=== PATIENT | female | born 1955 | race Caucasian/White ===

== ENCOUNTER → 2022-01-14 12:48 | Outpatient (CLI) | payer OTHER, SELFPAY ==
--- NOTE | 2022-01-14 12:54 | DI.RAD.S_ITS ---
PROCEDURE: XR LUMBAR SPINE MIN 4V INDICATIONS: BACK PAIN TECHNIQUE: 4 views of the lumbar spine were acquired, including bilateral oblique views. COMPARISON: [facility], CR, XR LUMBAR SPINE 2 OR 3 VIEWS, 06/11/2021, 16:46. FINDINGS: Bones: 5 nonrib-bearing vertebrae are present. There is normal bony alignment. No vertebral body compression fractures. Facet arthrosis, most prominent at L5-S1. Moderate to advanced degenerative change of the right hip. Left hip arthroplasty, partially imaged. Soft tissues: Overlying bowel gas pattern is normal. No suspicious soft tissue calcifications. Oblique images: No pars defects. IMPRESSION: No significant abnormality. Dictated by: Josué Gardner M.D. on 01/14/2022 at 14:47 Approved by: Josué Gardner M.D. on 01/14/2022 at 14:49
== END ==
PROVIDERS: PCP Physician Assistant; Referring Provider Physical Medicine & Rehabilitation; Visit Provider Physical Medicine & Rehabilitation
DX: M47.816 Spondylosis without myelopathy or radiculopathy, lumbar region (principal); M16.51 Unilateral post-traumatic osteoarthritis, right hip; M54.9 Dorsalgia, unspecified; Z98.890 Other specified postprocedural states; Z90.81 Acquired absence of spleen
CPT/HCPCS: 72110; 99214